=== PATIENT | male | born 1950 | race Two or more races ===

== ENCOUNTER 2016-11-17 22:44 | Emergency (ER) | payer SELFPAY ==
[~2016-11-17] VITALS: Ht 167.6 cm; Wt 86.2 kg
[2016-11-17 23:40] VITALS: BP 123/70
[2016-11-18 02:00] VITALS: BP 124/71
--- NOTE | 2016-11-18 02:15 | Emergency Room Report ---
History of Present Illness General Chief Complaint: Alcohol Intoxication Source: Patient Present Illness HPI 66 YOM [place]IB[place]S [place] bus [place] for alleged ETOH intoxication. Atraumatic. Glucose and vitals stable on scene. patient endorses ETOH, denies other drugs , trauma or pain. Homeless. Denies other medical problems. Allergies: Coded Allergies: UNABLE TO ASSESS (Unverified , 11/17/16) Patient History Limited by: medical condition Past Medical History: none Past Surgical History: none Pertinent Family History: none Social History: Reports: alcohol use, Denies: drug use, smoking Immunizations: UTD Reviewed Nursing Documentation: PMH: Agreed, PSxH: Agreed Nursing Documentation-PMH Past Medical History Deferred: Pt Cognitively Impaired Past Medical History: No Stated History Review of Systems All Other Systems: negative except mentioned in HPI Physical Exam Vital Signs Date Time Temp Pulse Resp B/P Pulse Ox O2 Delivery O2 Flow Rate FiO2 11/17/16 22:39 96.8 69 16 116/69 94 Room Air Sp02 EP Interpretation: reviewed, normal General Appearance: normal inspection, well appearing, no apparent distress, alert, GCS 15, non-toxic, other - +AOB, disheveled Head: normocephalic, atraumatic Eyes: bilateral eye EOMI, bilateral eye PERRL ENT: normal ENT inspection, hearing grossly normal, normal voice Neck: normal inspection, full range of motion, supple, no bony tend Respiratory: normal inspection, lungs clear, normal breath sounds, no respiratory distress, no retraction, no wheezing Cardiovascular #1: regular rate, rhythm, no edema Gastrointestinal: normal inspection, normal bowel sounds, non tender, soft, no guarding, no hernia Genitourinary: no CVA tenderness Musculoskeletal: normal inspection, back normal, normal range of motion, Mynor' s Sign negative Neurologic: normal inspection, alert, responsive, speech normal Psychiatric: normal inspection, judgement/insight normal, mood/affect normal Skin: normal inspection, normal color, no rash Lymphatic: normal inspection Medical Decision Making Diagnostic Impression: Primary Impression: Acute alcoholic intoxication Qualified Codes: F10.120 - Alcohol abuse with intoxication, uncomplicated ER Course VSS. Afebrile. Atraumatic. Likely acute on chronic ETOH intoxication Denies other drugs Denies any pain Patient was provided safe place for sobriety in the ED with serial VS check, serial exams to monitor for safety and sobriety Tolerating PO - asked for and received food Ambulating with steady gait DC in the morning Last Vital Signs Date Time Temp Pulse Resp B/P Pulse Ox O2 Delivery O2 Flow Rate FiO2 11/17/16 23:40 97.2 76 17 123/70 96 Room Air Status: improved Disposition: HOME, SELF-CARE Condition: Improved Referrals: NOT CHOSEN IPA/,REFERRING (PCP) Patient Instructions: Alcohol Intoxication PATY AMIN M.D. Nov 18, 2016 02:15
[2016-11-18 05:05] VITALS: BP 118/67
== END 2016-11-18 05:06 | disposition home or self-care (01) ==
LOC: EDBD 22:44 → EMR 23:24
DX: F10.120 Alcohol abuse with intoxication, uncomplicated (principal); Z59.0 Homelessness
CPT/HCPCS: 99284